=== PATIENT | female | born 1980 | race Caucasian/White ===

== ENCOUNTER 2017-12-07 13:03 | Emergency (ER) | payer BC ==
[~2017-12-07 13:03] MED LIST: Iopamidol 370 76% 100 ML VIAL ONE
[2017-12-07] MEDS ORDERED: Lidocaine Viscous Sol 2% 15 ml UD Cup ONE (15:24)
[2017-12-07] MEDS ORDERED: Mag-Al Plus 1200 MG/1200 MG/120 MG/30 ML UDCUP ONE (15:24)
[2017-12-07 15:47] LABS: #Lymphocytes 1.6 thou/uL (1.20-3.40); #Monocytes 0.3 thou/uL (0.11-0.59); #Neutrophils 4.7 thou/uL (1.40-6.50); %Basophils 0.7 % (0.0-1.0); %Eosinophils 0.2 % (0.0-10.0); %Lymphocytes 23.7 % (21.0-51.0); %Monocytes 4.4 % (0.0-10.0); Hemoglobin 13.5 g/dL (12.0-16.0); Mean Corpuscular HGB CONC 36.1 g/dL (32.0-36.0); Mean Corpuscular Hemoglobin 31.8 pg (27.0-31.0); Mean Platelet Volume 7.9 fL (7.4-10.4); Platelet Count 147 thou/uL (130-400); RBC Distribution Width 10.6 % (11.5-14.5); Red Blood Cell (RBC) Count 4.26 mill/uL (4.20-5.40); White Blood Cell (WBC) Count 6.6 thou/uL (4.8-10.8)
[2017-12-07 15:50] LABS: Bilirubin Negative (Negative); Blood, Urine Negative (Negative); Clarity Clear (Clear); Glucose, Urine (Dipstick) Negative (Negative); Leukocyte Negative (Negative); Nitrite Negative (Negative); Protein, Urine (Dipstick) Negative (Neg-Trace); Urobilinogen 0.2 mg/dL (0.2-1.0); pH, Urine 6.5 (5.0-9.0)
[2017-12-07 16:00] LABS: BHCG - Serum Negative (NEGATIVE); Pregs Control Background? CLEAR/WHITE (CLR/WHITE); Pregs Control Bar Appear? YES (CONTROL BAR)
[2017-12-07 16:03] LABS: ALT (SGPT) 11 U/L (8-55); AST (SGOT) 14 U/L (5-34); Albumin 4.4 g/dL (3.5-5.0); Alkaline Phosphatase 40 U/L (40-150); Anion Gap 14 mmol/L (10-20); BUN (Urea Nitrogen) 7 mg/dL (7.0-18.7); Bilirubin, Total 0.9 mg/dL (0.2-1.2); CKMB 0.5 ng/mL (0-6.6); Calc. Creatinine Clearance 0 mL/min (70-130); Calcium 10.3 mg/dL (7.8-10.44); Carbon Dioxide 21 mmol/L (22-29); Chloride 108 mmol/L (98-107); Estimated GFR-MDRD Greater than 90; Glucose 98 mg/dL (70-105); Lipase 7 U/L (8-78); Potassium 3.7 mmol/L (3.5-5.1); Protein, Total 7.4 g/dL (6.0-8.3); Sodium 139 mmol/L (136-145); Troponin I 0.011 ng/mL (< 0.028)
[2017-12-07] MEDS ORDERED: Ondansetron PF 4 MG/2 ML Vial ONE (17:46)
[2017-12-07] MEDS ORDERED: Famotidine/PF 20 mg/2ml Vial ONE (17:46)
--- NOTE | 2017-12-07 19:34 | CT ---
CT OF THE ABDOMEN AND PELVIS WITH CONTRAST: 12/07/17 COMPARISON: None. HISTORY: Intermittent abdominal pain for six months. The abdominal pain is sharp, burning, and cramping in raymon ure. TECHNIQUE: Multiple contiguous axial images were obtained in a CT of the abdomen and pelvis with contrast. PO co ntrast was administered. Coronal reformats were performed. FINDINGS: The liver, gallbladder, kidneys, adrenal glands, spleen, and pancreas are unremarkable. No free air, free fluid, or stranding changes are seen in the abdomen or pelvis. The large and small bowel are unremarkable. The appendix is not definitely seen. No free air, free fl uid, or stranding changes are seen in the abdomen or pelvis. The reproductive organs are unremarkable. A recently ovulated follicle is see in the right ovary julianna uring 2.0 cm in size. No abdominal or pelvic lymphadenopathy are seen. The osseous structures, visualized inferior thorax and abdominal wall soft tissues are unremarkable. IMPRESSION: No evidence of acute intra-abdominal/pelvic abnormality. POS: JOHNNY
--- NOTE | 2018-01-21 16:15 | EKG ---
Test Reason : Blood Pressure : / mmHG Vent. Rate : 088 BPM Atrial Rate : 088 BPM P-R Int : 106 ms QRS Dur : 074 ms QT Int : 374 ms P-R-T Axes : 046 063 011 degrees QTc Int : 452 ms Sinus rhythm with short GA Nonspecific T wave abnormality Abnormal ECG Confirmed by LANETTE CHOWDHURY, SAMY ([id number]), editor dictionary EV CHIU ([id number]) on 01/21/2018 4:15:22 PM Referred By: DR. GAMA Confirmed By:SAMY GAMA MD
== END 2017-12-07 19:21 | disposition home or self-care (01) ==
LOC: SCSER 13:03
DX: R10.13 Epigastric pain (principal)
CPT/HCPCS: 74177; 80053; 81003; 82553; 83690; 84484; 84703; 85025; 87086; 93005; 96361; 96374; 96375; J2405; S0028